=== PATIENT | male | born 1940 | race Caucasian/White ===

== ENCOUNTER → 2017-02-02 | Outpatient (CLI) | payer MEDICARE, BC ==
[~2017-02-02] MED LIST: ALEVE 220MG220 MG PO; DESYREL 100MG100 MG PO; GLUCOSAMINE & C1 CA1 PO; MAGNEBIND 300 21 TAB PO; MASON NATURAL600 MG PO; MULTI VITAMINS1 TAB PO; OMEGA-3 1000 MG1 CAP PO; PROZAC 20MG20 MG PO; THE MEDICINE S200 M2 PO; VITAMIN D 400400 IU PO; VITAMINE200 PO; VTAMINC250TA PO; ZOCOR 10MG10 MG PO
== END ==
LOC: BHSO 13:54
DX: F33.41 Major depressive disorder, recurrent, in partial remission (principal)

== ENCOUNTER 2017-03-10 20:47 | Inpatient (IN) | payer MEDICARE, BC ==
[~2017-03-10] VITALS: Ht 180.3 cm; Wt 83.1 kg
[2017-03-10 22:19] VITALS: BP 150/69; PULSE 57; TEMP 97.5
[2017-03-10] MEDS ORDERED: DESYREL 100MG100 MG PO (22:36)
[2017-03-10] MEDS ORDERED: ZOCOR 10MG10 MG PO (22:37)
[2017-03-10] MEDS ORDERED: PROZAC 20MG20 MG PO (22:37)
[2017-03-10] MEDS ORDERED: OMEGA-3 1000 MG1 CAP PO (22:39)
[2017-03-10] MEDS ORDERED: MULTI VITAMINS1 TAB PO (22:40)
[2017-03-10] MEDS ORDERED: GLUCOSAMINE & C1 CA1 PO (22:41)
[2017-03-10] MEDS ORDERED: VITAMIN D 400400 IU PO (22:42)
[2017-03-10] MEDS ORDERED: MASON NATURAL600 MG PO (22:43)
[2017-03-10] MEDS ORDERED: THE MEDICINE S200 M2 PO (22:43)
[2017-03-10] MEDS ORDERED: MAGNEBIND 300 21 TAB PO (22:45)
[2017-03-10] MEDS ORDERED: VTAMINC250TA PO (22:46)
[2017-03-10] MEDS ORDERED: ALEVE 220MG220 MG PO (22:46)
[2017-03-10] MEDS ORDERED: VITAMINE200 PO (22:47)
[2017-03-11 01:26] VITALS: BP 134/77; PULSE 69; TEMP 98
[2017-03-11 04:46] LABS: BASO # 0.1 (0.0-0.2); BASO % 0.8 % (0.0-2.0); EOS # 0.1 (0.0-0.7); EOS % 2.1 % (0-4.0); GRAN # 3.3 (1.4-6.5); GRAN % 53.4 % (42.2-75.2); HEMATOCRIT 43.4 % (42.0-52.0); HEMOGLOBIN 14.4 g/dl (13.5-18.0); LYMPH # 1.9 (1.2-3.4); LYMPH % 31.7 % (20.0-51.0); MEAN CELL VOLUME 94 fl (80.0-100.0); MEAN CORPUSCULAR HEMOGLOBIN 31 pg (27.0-31.0); MEAN CORPUSCULAR HGB CONC 33 g/dl (33.0-37.0); MEAN PLATELET VOLUME 10.5 fl (7.4-10.4); MONO # 0.7 (0.1-0.6); MONO % 11.8 % (1.7-9.3); PLATELET COUNT 149 K/mm3 (130-400); RED BLOOD COUNT 4.61 M/mm3 (4.20-5.60); REDCELL DISTRIBUTION WIDTH-CV 13.2 % (11.5-14.5); WHITE BLOOD COUNT 6.1 K/mm3 (4.8-10.8)
[2017-03-11 04:57] LABS: ADJUSTED CALCIUM 8.9 mg/dL (8.4-10.2); ALBUMIN 3.4 gm/dL (3.5-5.0); BILIRUBIN,TOTAL 0.8 mg/dL (0.0-1.0); CALCIUM 8.4 mg/dL (8.4-10.2); CREATININE, serum 1.2 mg/dL (0.66-1.25); POTASSIUM 4.2 mmol/L (3.4-5.0); TOTAL PROTEIN 6.1 gm/dL (6.4-8.2)
[2017-03-11 05:50] VITALS: BP 151/81; PULSE 53; TEMP 98.2
[2017-03-11 10:47] VITALS: BP 165/74; PULSE 53; TEMP 98
[2017-03-11 14:30] VITALS: BP 153/87; PULSE 70; TEMP 98.1
[2017-03-11 17:55] VITALS: BP 149/77; PULSE 50; TEMP 98.4
[2017-03-11 22:39] VITALS: BP 142/72; PULSE 55; TEMP 98.1
[2017-03-12] VITALS (9 sets, daily range): BP systolic 121–148; BP diastolic 57–72; PULSE 50–81; TEMP 97.7–98.4
[2017-03-12 07:02] LABS: CREATININE, serum 1.04 mg/dL (0.66-1.25)
[2017-03-12 07:03] LABS: ADJUSTED CALCIUM 8.8 mg/dL (8.4-10.2); ALBUMIN 3.5 gm/dL (3.5-5.0); CALCIUM 8.4 mg/dL (8.4-10.2); POTASSIUM 3.8 mmol/L (3.4-5.0); TOTAL PROTEIN 6.3 gm/dL (6.4-8.2)
== END 2017-03-12 17:00 | disposition home or self-care (01) | DRG 417 ==
LOC: SURG 20:47
PROVIDERS: Surgery
PROC: BF101ZZ Fluoroscopy of Bile Ducts using Low Osmolar Contrast (ICD-10-PCS; 2017-03-12)
PROC: 0FT44ZZ Resection of Gallbladder, Percutaneous Endoscopic Approach (ICD-10-PCS; principal; 2017-03-12 11:00)
DX: K80.10 Calculus of gallbladder with chronic cholecystitis without obstruction (principal); K85.10 Biliary acute pancreatitis without necrosis or infection
CPT/HCPCS: J1644; J2270; J2405; J2704; J3010; J7030; J7120; Q9967

== ENCOUNTER → 2017-04-04 | Outpatient (CLI) | payer MEDICARE, BC | LOC: BHSO 13:06 | DX: F41.1 Generalized anxiety disorder (principal) ==

== ENCOUNTER → 2017-06-27 | Outpatient (CLI) | payer MEDICARE, BC | LOC: BHSO 14:36 | DX: F41.1 Generalized anxiety disorder (principal) ==

== ENCOUNTER → 2018-01-04 | Outpatient (CLI) | payer MEDICARE, BC | LOC: BHSO 15:07 | DX: F33.42 Major depressive disorder, recurrent, in full remission (principal) | CPT/HCPCS: G0463 ==

== ENCOUNTER → 2018-05-16 | Outpatient (CLI) | payer MEDICARE, BC | LOC: BHSO 15:16 | DX: F41.1 Generalized anxiety disorder (principal) | CPT/HCPCS: G0463 ==

== ENCOUNTER → 2018-10-09 | Outpatient (CLI) | payer MEDICARE, BC | LOC: COL.CARD 09:42 | DX: R41.89 Other symptoms and signs involving cognitive functions and awareness (principal) ==

== ENCOUNTER → 2018-10-25 | Outpatient (CLI) | payer MEDICARE, BC | LOC: BHSO 13:34 | DX: F41.1 Generalized anxiety disorder (principal) | CPT/HCPCS: G0463 ==

== ENCOUNTER → 2019-03-17 | Outpatient (CLI) | payer MEDICARE, BC | LOC: BHSO 13:16 | DX: F90.0 Attention-deficit hyperactivity disorder, predominantly inattentive type (principal) | CPT/HCPCS: G0463 ==

== ENCOUNTER → 2019-04-15 | Outpatient (CLI) | payer MEDICARE, BC | LOC: BHSO 13:38 | DX: F33.41 Major depressive disorder, recurrent, in partial remission (principal) | CPT/HCPCS: G0463 ==

== ENCOUNTER → 2019-07-30 | Outpatient (CLI) | payer MEDICARE, BC | LOC: BHSO 15:05 | DX: F41.1 Generalized anxiety disorder (principal) | CPT/HCPCS: G0463 ==

== ENCOUNTER → 2019-12-26 | Outpatient (CLI) | payer MEDICARE, BC | LOC: BHSO 14:25 | DX: F41.1 Generalized anxiety disorder (principal) | CPT/HCPCS: G0463 ==

== ENCOUNTER → 2020-04-13 | Outpatient (CLI) | payer MEDICARE, BC | LOC: BHSO 10:55 | DX: F41.1 Generalized anxiety disorder (principal) | CPT/HCPCS: G0463 ==

== ENCOUNTER → 2020-07-09 | Outpatient (CLI) | payer MEDICARE, BC | LOC: BHSO 10:09 | DX: F41.1 Generalized anxiety disorder (principal) | CPT/HCPCS: G0463 ==

== ENCOUNTER 2021-08-01 23:01 | Inpatient (IN) | payer MEDICARE, BC ==
[~2021-08-01] VITALS: Ht 180.3 cm; Wt 72.2 kg
[2021-08-02] VITALS (521 sets, daily range): BP systolic 63–129; BP diastolic 30–94; PULSE 60–85; TEMP 97.9–99.4; O2SAT 52–100
--- NOTE | 2021-08-02 00:30 | NUR ---
Pt. arrived to the floor via ems stretcher. Pt. able to ambulate to the bed independently. Pt. is A&OX3, but forgetful. INT to lt. hand and lt. forearm. IV fluids started to lt. forearm. Pt. denies pain at this time. Addmission assessment complete. Prepping pt. for surgery.
--- NOTE | 2021-08-02 01:10 | NUR ---
Pt. to OR.
[2021-08-02] MEDS ORDERED: CORDARONE200 MG/TAB PO (03:17)
[2021-08-02] MEDS ORDERED: LIPITOR 80MG80 MG PO (03:17)
[2021-08-02] MEDS ORDERED: PLAVIX 75MG TAB75 MG PO (03:18)
[2021-08-02] MEDS ORDERED: BUSPIRONE HCL7.5 MG PO (03:18)
[2021-08-02] MEDS ORDERED: ARICEPT10 MG PO (03:19)
[2021-08-02] MEDS ORDERED: TOPROL XL 25MG25 MG PO (03:20)
[2021-08-02] MEDS ORDERED: SEROQUEL 2525 MG/TAB PO (03:21)
[2021-08-02] MEDS ORDERED: PROTONIX 40MG T40 MG PO (03:21)
[2021-08-02] MEDS ORDERED: EFFEXOR-XR150 MG PO (03:22)
--- NOTE | 2021-08-02 03:52 | NUR ---
Pt. continues to have soft BP's. Discussed this with SHALA Rojo. Plan to transfer to ICU.
--- NOTE | 2021-08-02 05:02 | NUR ---
Dr. Burkett at bedside for central line insertion.
--- NOTE | 2021-08-02 05:24 | NUR ---
Per Dr. Burkett, unable to insert central line in MOJ; will need to place a femorally located central line or obtain PICC line later today. Hospitalist, Alia, notified. Patient receiving levophed at 0.22 mcg/kg/min or 60.6 mL/hr to a peripherally located IV at this time. Per Alia, to wait for PICC line insertion. Dr. Burkett aware.
[2021-08-02 06:44] LABS: MEAN CELL VOLUME 96 fl (80.0-100.0); MEAN CORPUSCULAR HEMOGLOBIN 31 pg (27.0-31.0); MEAN CORPUSCULAR HGB CONC 33 g/dl (33.0-37.0); MEAN PLATELET VOLUME 11.3 fl (7.4-10.4); PLATELET COUNT 157 K/mm3 (130-400); RED BLOOD COUNT 3.52 M/mm3 (4.20-5.60); REDCELL DISTRIBUTION WIDTH-CV 15.4 % (11.5-14.5)
[2021-08-02 06:52] LABS: HEMATOCRIT 33.6 % (42.0-52.0)
[2021-08-02 07:00] LABS: CALCIUM 8.4 mg/dL (8.4-10.2); CREATININE, serum 2.38 mg/dL (0.72-1.25); POTASSIUM 4.5 mmol/L (3.5-4.5)
[2021-08-02 07:29] LABS: BAND 27 % (0-10); LYMPHOCYTE 6 % (20.0-51.0); METAMYELOCYTE 3 % (0-0); NEUTROPHILS 48 % (42.0-75.2); OVALOCYTES 1+
[2021-08-02 07:30] LABS: PLATELET ESTIMATE NORMAL (NORMAL)
--- NOTE | 2021-08-02 12:32 | NUR ---
RENATO met with patient and his , Anushka, ([phone]), to discuss d/c plan. Patient and reside in a house with a basement in [place] but patient does not need to use the stairs to the basement. Patient and both state that patient was independent, with no DME use, prior to a couple of months ago. He has had multiple hospital stays for various medical issues as of late. Between 2 of those prior admits patient was at [facility] in [place] and he is both willing and supportive of returning for rehab, at the end of this hospital stay. He was also receiving cardio therapy at [facility] recently. Patient has no DMEs and no oxygen needs, receiving his medication needs from [facility] in [place]. PCP is Dr. Deidre Adams. *D/C Plan: Anticipate discharging to skilled rehab pending therapy evaluations
[2021-08-02 15:55] LABS: COLLECTION METHOD CATHETER
[2021-08-02 16:03] LABS: PH 5 (5-8); SQUAMOUS EPITHELIAL None Seen /hpf; URINE APPEARANCE Turbid; URINE BACTERIA Rare /hpf; URINE BILIRUBIN Negative (NEGATIVE); URINE BLOOD 3+ (NEGATIVE); URINE COLOR Amber; URINE GLUCOSE Negative (NEGATIVE); URINE KETONE Negative (NEGATIVE); URINE LEUKOCYTE ESTERASE 2+ (NEGATIVE); URINE NITRATE Negative (NEGATIVE); URINE PROTEIN(semi-quant) 2+ (NEGATIVE); URINE RBC >50 /hpf; URINE UROBILINOGEN Negative (NEGATIVE)
--- NOTE | 2021-08-02 18:06 | NUR ---
1710 PT NOTED TO HAVE INCREASED HR, INCREASED AND LABORED RESP AND C/O SOA. NON PRODUCTIVE COUGH. TEMP NOTED TO BE 99.9. CALL TO DR. ZURITA. PT PLACED ON 4L NC, STAT EKG ORDERED 1730 DR ZURITA AT BEDSIDE, CONSULTING DR PACKER AND DR TEE. 1800 DR TEE AT BEDSIDE. CHEST XRAY DONE. CALL TO RT TO START PT ON BIPAP. WILL CONTINUE TO MONITOR.
[2021-08-02 19:08] LABS: INR 1.7 (0.8-3.0); PROTHROMBIN TIME 19.4 SECONDS (9.7-12.8)
--- NOTE | 2021-08-02 19:42 | NUR ---
Dr. Gill and Alia LAST at bedside. Patient and patient family requesting to go comfort care.
--- NOTE | 2021-08-02 20:00 | NUR ---
Assessment complete and charted. Patient provided with bed bath and linens changed. Family will be at bedside shortly. Denies other needs at this time. Call light in reach.
--- NOTE | 2021-08-03 06:41 | NUR ---
Patient had uneventful night. No reports of pain or difficulty breathing during night. Resting in bed this AM. Call light in reach.
--- NOTE | 2021-08-03 07:04 | NUR ---
Report given to VIVIAN Betts
--- NOTE | 2021-08-03 09:05 | NUR ---
[employer] met with patient, , and daughter, Antoinette, this a.m. They requested explanation of difference between Pal. care and Hospice. Pt's appears to know exactly what that means but dtr was tearful and stepped out. She asked this worker if the patient knows the difference and if they were making the right decision. This worker provided support and encouragement, stating this is an individual decision and additional information on comfort care. I explained that Sharron Juárez would be giving them more information and answering any questions they may have when she talks with them. SW will remain following patient's needs.
--- NOTE | 2021-08-03 09:27 | NUR ---
Initial visit; Patient and his thanked Station Captain for offering comfort and prayer this morning. Patient states that he feels better this morning.
--- NOTE | 2021-08-03 10:33 | NUR ---
Gerardo and two of the four adult children are present in the room with the patient. He has spoken with Drs involved in the care along with his family and they have decided on comfort care given the complex medical situation he has and feel very firm about this. Pt is very clear that he wants to be comfortable. James, social insurance administrator, and I met with family to discuss hospice services, where they can be recieved and what that would involve. Pt declined going home as felt the care would be too much for his to handle. We discussed nursing facilities and also [facility] and that these would involve a room and board charge. They would like to see the [facility] and a tour was set up that will also allow them to visit with Donnie, the psychologist social about what their LTC.
--- NOTE | 2021-08-03 11:05 | NUR ---
Acrobatic Dancer met with patient & family and Sharron Motta ([facility] RN) to discuss goals of care. Patient and are very clear that they do not want aggressive care/treatment. Sharron contacted [facility] to meet with family when they tour today at 11a.m. Family expressed their satisfaction that their questions were answered. Referral sent to [facility]. SW will continue to assist family with transition to hospice if that's what they decide. D/C Plan: Discharge to hospice
--- NOTE | 2021-08-03 12:03 | NUR ---
I recieved notice from [facility] that they can admit pt after 1pm today. They would like for him to have a covid test prior to discharge. Alpesh RN will call report to [facility] nurses at [phone] and include anticipated discharge time. James, social services assistant, is handling physician notification and will fax discharge orders when they are available.
--- NOTE | 2021-08-03 12:25 | NUR ---
Atg Architect recd call from VIVIAN Denton that family has decided to go to [facility]. RENATO spoke with Dr. Braxton and he will put in d/c orders and he advised patient will need to go EMS. RENATO spoke with family and VIVIAN Bravo, that I arranged EMS transportation for 2:30. RENATO notified RN and family, and left vm for Pham at [facility].
[2021-08-03] MEDS ORDERED: TYLENOL 325MG325 MG PO (13:29)
[2021-08-03] MEDS ORDERED: Remove Patch TD (13:31)
[2021-08-03] MEDS ORDERED: B & O SUPPRETTE1 SUP RC (13:31)
[2021-08-03] MEDS ORDERED: ROXANOL 20MG20 MG/ML SL (13:31)
[2021-08-03] MEDS ORDERED: ATIVAN 1MG T1 MG/TAB PO (13:34)
[2021-08-03] MEDS ORDERED: ASPIRIN 81M81 MG/TA2 PO (13:44)
--- NOTE | 2021-08-03 14:55 | NUR ---
Report given to hospice nurse after patient departed the ICU at 1450. Paperwork given to EMS. Pt stable and slime for transfer. See EMAR for other details.
== END 2021-08-03 14:50 | disposition hospice, home (50) | DRG 853 ==
LOC: MEDICAL 23:01 → ICU 08-02 00:27 → SURG 08-02 00:27 → ICU 08-02 03:54
PROVIDERS: Internal Medicine Pulmonary Disease; Student in an Organized Health Care Education/Training Program; Urology; ADMIT Student in an Organized Health Care Education/Training Program
PROC: 0T768DZ Dilation of Right Ureter with Intraluminal Device, Via Natural or Artificial Opening Endoscopic (ICD-10-PCS; principal; 2021-08-02 01:30)
PROC: BT1D1ZZ Fluoroscopy of Right Kidney, Ureter and Bladder using Low Osmolar Contrast (ICD-10-PCS; 2021-08-02 01:30)
PROC: 02HV33Z Insertion of Infusion Device into Superior Vena Cava, Percutaneous Approach (ICD-10-PCS; 2021-08-02 01:30)
DX: A41.9 Sepsis, unspecified organism (principal); R65.21 Severe sepsis with septic shock; J81.0 Acute pulmonary edema; J96.01 Acute respiratory failure with hypoxia; I50.22 Chronic systolic (congestive) heart failure; N39.0 Urinary tract infection, site not specified; Z20.822 Contact with and (suspected) exposure to COVID-19; I25.5 Ischemic cardiomyopathy; Z95.0 Presence of cardiac pacemaker; I25.10 Atherosclerotic heart disease of native coronary artery without angina pectoris; G25.81 Restless legs syndrome; G47.33 Obstructive sleep apnea (adult) (pediatric); M11.9 Crystal arthropathy, unspecified; F41.9 Anxiety disorder, unspecified; F02.80 Dementia in other diseases classified elsewhere, unspecified severity, without behavioral disturbance, psychotic disturbance, mood disturbance, and anxiety; Z66 Do not resuscitate; Z51.5 Encounter for palliative care; F32.9 Major depressive disorder, single episode, unspecified; G30.9 Alzheimer's disease, unspecified; I11.0 Hypertensive heart disease with heart failure
CPT/HCPCS: 99222-AI; 99239; A9284; C1751; C1769; C2617; J1644; J1940; J2185; J2405; J2704; J7050; J7060; J7120; Q9967